=== PATIENT | male | born 1955 | race Caucasian/White ===

== ENCOUNTER → 2017-06-27 | Outpatient (CLI) | payer MEDICARE, BC ==
[2017-06-27 09:43] LABS: HCT 47.2 % (39.0-53.0); HGB 16.1 gm/dL (13.0-17.5); MCH 31.1 pg (25.0-35.0); MCV 91.5 fL (80.0-100.0); Mean Platelet Volume 8.3; Platelet Count 218 k/uL (150-450); RBC 5.16 m/uL (4.30-5.90); RDW 13.1 % (11.5-15.5); WBC 13.8 k/uL (3.8-10.6)
[2017-06-27 10:36] LABS: Anion Gap 11 mmol/L; Blood Urea Nitrogen 18 mg/dL (9-20); Calcium 9.4 mg/dL (8.4-10.2); Carbon Dioxide 29 mmol/L (22-30); Chloride 103 mmol/L (98-107); Glucose 174 mg/dL (74-99); Potassium 4.4 mmol/L (3.5-5.1); Sodium 143 mmol/L (137-145)
[2017-06-27 20:03] LABS: Hemoglobin A1C 8.4 % (4.0-6.0)
== END | disposition home or self-care (01) ==
LOC: LABWHC1 09:13
PROVIDERS: ATTEND Internal Medicine Interventional Cardiology
DX: I25.10 Atherosclerotic heart disease of native coronary artery without angina pectoris (principal); E11.9 Type 2 diabetes mellitus without complications
CPT/HCPCS: 36415; 80048; 83036; 85027

== ENCOUNTER 2017-07-16 06:25 | Day surgery (SDC) | payer MEDICARE, BC ==
[2017-07-10 13:07] VITALS: BMI 28.8
[2017-07-16] MEDS ORDERED: ATORVASTATIN 80 MG TAB PO STA (06:32)
[2017-07-16] MEDS ORDERED: ALPRAZolam 0.25 MG TAB PO PRN (06:32)
[2017-07-16] MEDS ORDERED: ALPRAZolam 0.5 MG TAB PO PRN (06:32)
[2017-07-16] MEDS ORDERED: NITROGLYCERIN SL TABS 0.4 MG TAB SUBLINGUAL PRN (06:32)
[2017-07-16] MEDS ORDERED: ASPIRIN 325 MG TAB PO STA (06:32)
[2017-07-16] MEDS ORDERED: SODIUM CHLORIDE 0.9% 1,000 ML in EMPTY BAG 1 BAG IV ONE (06:32)
[2017-07-16 07:11] LABS: Glucose,Whole Blood 152 mg/dL (75-99)
[2017-07-16 07:15] VITALS: PULSE 83; RESP 20
[2017-07-16] MEDS ORDERED: diphenhydrAMINE 50 MG/ML 1 ML VIAL IVP ONE (07:25)
[2017-07-16] MEDS ORDERED: MIDAZOLAM 2 MG/2 ML VIAL IVP ONE (07:25)
[2017-07-16] MEDS: LIDOCAINE 2% INJ 20 MG/ML SQ ONE ×2 (07:31→07:47)
[2017-07-16] MEDS: VERAPAMIL SYRINGE (5 MG/10 ML) INTRAARTER ONE ×2 (07:34→08:18)
[2017-07-16] MEDS ORDERED: HEPARIN SODIUM 1,000 UN/ML (10ML VL) IV ONE (07:36)
[2017-07-16] MEDS ORDERED: NITROGLYCERIN 1000MCG/10ML SYRINGE INTRAARTER ONE (07:43)
[2017-07-16] MEDS ORDERED: IOPAMIDOL-370 100ML BTL INJ ONE (08:20)
[2017-07-16] MEDS ORDERED: SODIUM CHLORIDE 0.9% 1,000 ML IV SCH (09:15)
[2017-07-16 11:48] LABS: Glucose,Whole Blood 124 mg/dL (75-99)
--- NOTE | 2017-07-16 13:29 | CC ---
CARDIAC CATHETERIZATION REPORT DATE OF SERVICE: 07/16/2017 PROCEDURE: Left heart catheterization and coronary angiography. PERFORMED BY: Dr. Alejandro Daley. Moderate conscious sedation time was 56 minutes. Patient was given a combination of Versed and Benadryl and his oxygen saturation, hemodynamics and EKG were monitored closely. CLINICAL INFORMATION: Mr. Yayo Church is a 62-year-old gentleman with history of smoking, type 2 diabetes, hypertension, hyperlipidemia, and known prior inferior ND. In 2006, he presented with inferior myocardial infarction and underwent stenting of a totally occluded circumflex vessel performed expeditiously. Subsequently in 2010, there was a new area of 90% stenosis with haziness distal to the previous stent and the previous stent was open and this was addressed with a another bare metal 4.0 caliber 8 mm stent. He has been having symptoms of exertional shortness of breath and abnormal stress test suggestive of significant edilson-infarct ischemia. Therefore, he was advised coronary angiography. Risks, benefits, options and rationale were explained. PROCEDURE NOTE: Under local anesthesia and strict aseptic precautions, a 6-St Lucian introducer was placed in the right radial artery. I tried to advance an Ultimate 1 catheter as well as a multipurpose catheter but I could not advance the catheter beyond the brachial artery probably because of a spasm. I therefore switched over to the femoral approach. Under local anesthesia and strict aseptic precautions, a 6-St Lucian introducer was placed in the right femoral artery. Using standard Yasir catheters I performed coronary angiography and the same right Yasir catheter was used to check LV pressure but LV gram was not performed. The sheath was then taken out and manual compression used to secure hemostasis. CARDIAC CATHETERIZATION FINDINGS: The left ventricle end-diastolic pressure was about 14 to 15 mmHg without any gradient across the aortic valve. CORONARY ANGIOGRAPHY FINDINGS: RIGHT CORONARY ARTERY: Technically a nondominant vessel which has a new 80% lesion in the proximal portion. This nondominant vessel supplies predominantly the right ventricle. There is a large conus branch also which has minor irregularities but the proximal RCA disease in a nondominant RCA is significant and the caliber of the vessel is at least 2.5 mm. This is a new lesion, represents progression of disease. LEFT MAIN CORONARY ARTERY: This is a long patent disease-free vessel that bifurcates into LAD and circumflex. LEFT ANTERIOR DESCENDING CORONARY ARTERY: Good caliber vessel that extends along the anterior wall. It gives off a good-sized diagonal branch and then there is a septal branch. The septal branch has a 90% stenosis, supplies a fair amount of myocardium. Right after the septal branch, there is a long area of about 55% narrowing, which is moderate disease. It does not appear critical and then the caliber of the vessel improves. It gives off several septal and diagonal branches and runs all the way to the apex to supply the inferoapical portion of left ventricle. LAD therefore is a large distribution vessel with a mid lesion of 50% to 55% and a septal branch that has a 95% stenosis and it is a good-sized septal branch. LEFT POSTERIOR CIRCUMFLEX CORONARY ARTERY: This is a dominant vessel. The proximal circumflex that was stented is widely patent and the first obtuse marginal that was dilated is also widely patent. The mid circumflex at the site of stenting in 2010 is widely patent and then it gives off 2 small obtuse marginal branches. Both the obtuse marginal branches have minor irregularities but no significant disease and the stented segments in the proximal and mid circumflex are widely patent. Beyond the 2 small obtuse marginal branches, the circumflex vessel bifurcates into 2 branches. The superior branch is a PLV branch which is free of significant disease. The inferior branch is a PDA branch and there is a 95% stenosis in this PDA branch. It is a supplies a fair amount of myocardium and measures about 2.25 caliber in diameter. It appears to be a fair caliber, fair distribution vessel. This also represents progression of disease. LEFT VENTRICULOGRAM: This was not performed. FINAL IMPRESSION: This patient has progression of disease with a proximal right coronary artery nondominant 80% stenosis, PDA branch coming off from circumflex of about 90% stenosis, the LAD has a 50% to 55% long the diseased area in the mid segment with a 90% septal disease. Previously stented proximal and mid circumflex are patent. Filling pressures are acceptable and left ventriculogram was not performed. RECOMMENDATIONS: Findings were reviewed with the patient. I will pursue intervention of the PDA branch, but before this, I will also check the LAD as well with a FFR. I am therefore recommending that we will proceed with an elective intervention, but for now I am recommending risk factor modification and medical therapy. Patient will be discharged today and I will see him in the office next week and then make recommendations after due discussion regarding risk factor modification, smoking cessation with the patient. Elective PCI of the PDA branch possibly of the nondominant RCA also and also assessment of FFR of the LAD lesion is advised. Discussed with the patient and his sister at length and he will be discharged later on today if he remains stable. SANDY / KRISTIE: [id number] /
--- NOTE | 2017-07-16 13:36 | LTR ---
July 16, 2017 Re: Yayo Church Dear Dr. Mercado: Thank you for the opportunity to participate in the care of Mr. Yayo Church. Please find enclosed my detailed cardiac cath report for your records. I will see this patient next week and make specific recommendations and plans for intervention. Risk factor modification issues including smoking cessation was also discussed. Thank you for your referral and please call for questions. With kindest regards. Sincerely yours, MD SANDY Tyson / DONNAN: [phone] /
[2017-07-16 18:34] VITALS: BP 152/74
== END 2017-07-16 17:10 | disposition home or self-care (01) ==
LOC: CATHCVL 06:25
PROVIDERS: ATTEND Internal Medicine Interventional Cardiology
DX: I25.110 Atherosclerotic heart disease of native coronary artery with unstable angina pectoris (principal); R94.39 Abnormal result of other cardiovascular function study; E11.9 Type 2 diabetes mellitus without complications; I10 Essential (primary) hypertension; E78.00 Pure hypercholesterolemia, unspecified; Z95.5 Presence of coronary angioplasty implant and graft; I25.2 Old myocardial infarction; F17.210 Nicotine dependence, cigarettes, uncomplicated; Z79.84 Long term (current) use of oral hypoglycemic drugs; Z79.82 Long term (current) use of aspirin; Z79.899 Other long term (current) drug therapy
CPT/HCPCS: 93458; C1769 ×4; C1894 ×2; J2001; J2250; J1200; J1644; Q9967

== ENCOUNTER → 2017-07-24 | Outpatient (CLI) | payer MEDICARE, BC ==
[2017-07-24 12:15] LABS: HCT 47.7 % (39.0-53.0); HGB 16.1 gm/dL (13.0-17.5); MCH 31.9 pg (25.0-35.0); MCHC 33.8 g/dL (31.0-37.0); MCV 94.3 fL (80.0-100.0); Mean Platelet Volume 8.4; Platelet Count 207 k/uL (150-450); RBC 5.06 m/uL (4.30-5.90); RDW 13.3 % (11.5-15.5); WBC 10.9 k/uL (3.8-10.6)
[2017-07-24 12:28] LABS: Anion Gap 13 mmol/L; Blood Urea Nitrogen 18 mg/dL (9-20); Carbon Dioxide 26 mmol/L (22-30); Chloride 101 mmol/L (98-107); Glucose 190 mg/dL (74-99); Potassium 4.8 mmol/L (3.5-5.1); Sodium 140 mmol/L (137-145)
[2017-07-24 12:29] LABS: Calcium 9.6 mg/dL (8.4-10.2)
== END | disposition home or self-care (01) ==
LOC: LABWHC1 11:32
PROVIDERS: ATTEND Internal Medicine Interventional Cardiology
DX: E11.9 Type 2 diabetes mellitus without complications (principal); I25.10 Atherosclerotic heart disease of native coronary artery without angina pectoris
CPT/HCPCS: 36415; 80048; 85027

== ENCOUNTER 2017-07-31 07:57 | Day surgery (SDC) | payer MEDICARE, BC ==
[~2017-07-31 07:57] MED LIST: ALPRAZolam 0.25 MG TAB PO PRN; ALPRAZolam 0.5 MG TAB PO PRN; ASPIRIN 325 MG TAB PO STA; ATORVASTATIN 80 MG TAB PO STA; NITROGLYCERIN SL TABS 0.4 MG TAB SUBLINGUAL PRN; SODIUM CHLORIDE 0.9% 1,000 ML in EMPTY BAG 1 BAG IV ONE
[2017-07-31 08:30] LABS: Glucose,Whole Blood 156 mg/dL (75-99)
[2017-07-31] MEDS ORDERED: diphenhydrAMINE 50 MG/ML 1 ML VIAL ONE (09:10)
[2017-07-31] MEDS ORDERED: LIDOCAINE 2% INJ 20 MG/ML (20 ML MDV) ONE (09:10)
[2017-07-31] MEDS ORDERED: MIDAZOLAM 2 MG/2 ML VIAL ONE (09:10)
[2017-07-31] MEDS ORDERED: diphenhydrAMINE 50 MG/ML 1 ML VIAL IVP ONE (09:51)
[2017-07-31] MEDS ORDERED: MIDAZOLAM 2 MG/2 ML VIAL IVP ONE ×2 (09:51)
[2017-07-31] MEDS ORDERED: BIVALIRUDIN 250 MG in SODIUM CHLORIDE 0.9% 50 ML IV ONE ×4 (09:53)
[2017-07-31] MEDS ORDERED: BIVALIRUDIN BOLUS 250 MG/50 ML IV ONE ×2 (09:53→10:04)
[2017-07-31] MEDS ORDERED: LIDOCAINE 2% INJ 20 MG/ML SQ ONE (09:56)
[2017-07-31] MEDS ORDERED: IOPAMIDOL-370 100ML BTL INJ ONE ×2 (10:22→10:50)
[2017-07-31] MEDS: NITROGLYCERIN 1000MCG/10ML SYRINGE INTRACORON ONE ×4 (10:23→10:46)
[2017-07-31] MEDS ORDERED: ADENOSINE 90 MG in SODIUM CHLORIDE 0.9% 60 ML IVP ONE (10:34)
[2017-07-31] MEDS ORDERED: TICAGRELOR 90 MG TAB ONE (10:40)
[2017-07-31] MEDS ORDERED: TICAGRELOR 90 MG TAB PO ONE (10:52)
[2017-07-31] MEDS ORDERED: ZOLPIDEM 5 MG TAB PO PRN (10:53)
[2017-07-31] MEDS ORDERED: NITROGLYCERIN SL TABS 0.4 MG TAB SUBLINGUAL PRN (10:53)
[2017-07-31] MEDS ORDERED: ATROPINE SULFATE 0.1 MG/ML 10ML SYRINGE IV PRN (10:53)
[2017-07-31] MEDS ORDERED: RX INFO: IV CONTRAST WAS GIVEN 1 EACH MISC MISCELLANE PRN (10:53)
[2017-07-31] MEDS ORDERED: MAG HYDROX/AL HYDROX/SIMETH 30 ML CUP PO PRN (10:53)
[2017-07-31] MEDS ORDERED: HEPARIN SODIUM 1,000 UN/ML (10ML VL) ONE (10:54)
--- NOTE | 2017-07-31 11:28 | PTCA ---
PERCUTANEOUSTRANS CORORONARY ANGIOGRAPHY DATE OF SERVICE: 07/31/2017. PROCEDURE: 1. PTCA and stenting of PDA branch of circumflex with a drug-eluting stent. 2. FFR of LAD. 3. PTCA and stenting of mid LAD with a drug-eluting stent. PERFORMED BY: Dr. Alejandro Daley. Moderate conscious sedation time was 55 minutes. CLINICAL INFORMATION: Mr. Yayo Church is a 62-year-old gentleman with a known history of CAD, prior myocardial infarction and PCI. I performed PCI of proximal circumflex and obtuse marginal branch and mid circumflex in the past. He had his initial intervention performed in 2006 followed by 2010 and recently performed a cath because of positive stress test and symptoms of exertional shortness of breath, which was considered to be anginal equivalence. Cardiac cath revealed that the PDA had a 95% stenosis, nondominant RCA also had a significant stenosis and mid LAD had a borderline lesion. He was advised intervention of the circumflex and FFR of LAD prior to any intervention. I would also consider the RCA PCI given the fact it is a nondominant vessel but has significant amount of myocardium being supplied by it. Risks, benefits, options were explained to the patient and his sister. PROCEDURE NOTE: Under local anesthesia and strict aseptic precautions, a 6-Greek introducer was placed in the right femoral artery. I used a standard left Yasir guide catheter to cannulate the left coronary artery. Using a Whisper wire I crossed the lesion in the PDA branch of circumflex and kept it distally. Using a 2.25 caliber 12 mm long Trek balloon, I pre-dilated the lesion. I then deployed a 18 mm long 2.25 caliber Xience stent with excellent angiographic result. I then turned my attention to the LAD. Using a volcano wire, I crossed the LAD lesion kept it distally, performed the IFR which came out to be 0.72. I then performed a FFR with the standard protocol and adenosine infusion. This came out to be 0.76. I then decided to stent the mid LAD. I used a 23 mm long Xience stent of 2.75 caliber and deployed this at 13 to 14 atmospheres. Patient did not have chest pain but had EKG changes in the anterior leads. Excellent angiographic result was achieved. The sheath was then sutured and catheter was taken out and he was sent to the room in a stable condition with the understanding there would be a manual pull for the sheath at about 1:15 p.m. The patient was administered Angiomax bolus and infusion. He was given Brilinta 180 mg after the PCI procedure. Excellent angiographic result was achieved and I spoke to the patient and family regarding the findings and I expect he will be discharged tomorrow if he remains stable. SANDY / KRISTIE: [id number] /
--- NOTE | 2017-07-31 11:34 | LTR ---
July 31, 2017 Re: Yayo Church Dear Dr. Mercado: Thank you the opportunity to participate in the care of Mr. Yayo Church. I am pleased to report to you that I stented his PDA branch of circumflex and mid LAD with excellent angiographic result. Two drug-eluting stents were deployed. I have counseled him regarding the need to quit smoking, but so far he has not made much progress. He also has an RCA lesion, which I will address later on if he has symptoms. Thank you for your referral and please call for questions. With kindest regards. Sincerely yours, MD RACHEL TysonL / DONNAN: [phone] /
[2017-07-31] MEDS: LISINOPRIL 5 MG TAB PO SCH (12:51)
[2017-07-31] MEDS: SODIUM CHLORIDE 0.9% 1,000 ML IV SCH (12:52)
[2017-07-31] MEDS: METOPROLOL TARTRATE 50 MG TAB PO SCH ×2 (12:52→21:08)
[2017-07-31 13:02] LABS: Glucose,Whole Blood 140 mg/dL (75-99)
[2017-07-31 16:45] LABS: Glucose,Whole Blood 157 mg/dL (75-99)
[2017-07-31] MEDS ORDERED: ACETAMINOPHEN TAB 325 MG TAB PO PRN (18:44)
[2017-07-31 20:51] LABS: Glucose,Whole Blood 235 mg/dL (75-99)
[2017-07-31] MEDS ORDERED: ATORVASTATIN 80 MG TAB PO SCH (21:00)
[2017-08-01] MEDS: SODIUM CHLORIDE 0.9% 1,000 ML IV SCH (01:28)
[2017-08-01 06:15] LABS: Glucose,Whole Blood 142 mg/dL (75-99)
[2017-08-01 06:27] LABS: Basophils % (A) 0 %; Eosinophils # (A) 0.3 k/uL (0-0.7); Eosinophils % (A) 2 %; HCT 45.4 % (39.0-53.0); HGB 15.5 gm/dL (13.0-17.5); Lymphocytes # (A) 1.9 k/uL (1.0-4.8); Lymphocytes % (A) 14 %; MCH 31.9 pg (25.0-35.0); MCHC 34.1 g/dL (31.0-37.0); MCV 93.5 fL (80.0-100.0); Mean Platelet Volume 7.6; Monocytes # (A) 0.7 k/uL (0-1.0); Monocytes % (A) 5 %; Neutrophils # (A) 10.3 k/uL (1.3-7.7); Neutrophils % (A) 77 %; Platelet Count 173 k/uL (150-450); RBC 4.86 m/uL (4.30-5.90); RDW 13.3 % (11.5-15.5); WBC 13.3 k/uL (3.8-10.6)
[2017-08-01 06:47] LABS: Anion Gap 11 mmol/L; Blood Urea Nitrogen 17 mg/dL (9-20); Calcium 9.1 mg/dL (8.4-10.2); Carbon Dioxide 28 mmol/L (22-30); Chloride 105 mmol/L (98-107); Glucose 138 mg/dL (74-99); Potassium 4.2 mmol/L (3.5-5.1); Sodium 144 mmol/L (137-145)
[2017-08-01] MEDS ORDERED: ASPIRIN 81 MG PO SCH (09:00)
[2017-08-01] MEDS ORDERED: TICAGRELOR 90 MG TAB PO SCH (09:00)
[2017-08-01 09:34] VITALS: BMI 28.1
[2017-08-01] MEDS: METOPROLOL TARTRATE 50 MG TAB PO SCH (09:56)
[2017-08-01] MEDS: LISINOPRIL 5 MG TAB PO SCH (09:57)
[2017-08-01 10:42] VITALS: BP 131/70; PULSE 72; RESP 18; TEMP 98.3
--- NOTE | 2017-08-01 11:02 | DS ---
DISCHARGE SUMMARY DATE OF ADMISSION: 07/31/2017. DATE OF DISCHARGE: 08/01/2017. DIAGNOSES: 1. Unstable angina. 2. Type 2 diabetes. 3. Hypertension. 4. Hyperlipidemia. 5. Previous myocardial infarction. PROCEDURES PERFORMED: PTCA and stenting of LAD after FFR and PTCA and stenting of the PDA branch of circumflex. Mr. Church was brought in for elective PCI. I performed stenting of circumflex PDA branch with excellent result then performed FFR of the LAD which was abnormal went on to stent the LAD. He also has a nondominant RCA lesion, which was not addressed. He is doing well. Postprocedure course is unremarkable. Right groin is clean and dry. S1, S2 heard normally, a short systolic murmur noted. Lungs are clear. Abdomen and lower extremity exam unchanged. Vital signs are stable. Labs and EKG are unremarkable. He will be discharged today. Discharge instructions regarding activity, diet and medications were given. I will see him in the office in the next 3 weeks. MMODL / IJN: [id number] /
== END 2017-08-01 10:38 | disposition home or self-care (01) ==
LOC: CATHCVL 07:57 → 6SEL 11:46 → CATHCVL 08-01 10:38
PROVIDERS: ATTEND Internal Medicine Interventional Cardiology
DX: I25.110 Atherosclerotic heart disease of native coronary artery with unstable angina pectoris (principal); I10 Essential (primary) hypertension; F17.210 Nicotine dependence, cigarettes, uncomplicated; E11.21 Type 2 diabetes mellitus with diabetic nephropathy; Z79.84 Long term (current) use of oral hypoglycemic drugs; Z95.5 Presence of coronary angioplasty implant and graft; E78.5 Hyperlipidemia, unspecified; I25.2 Old myocardial infarction; Z82.49 Family history of ischemic heart disease and other diseases of the circulatory system; E78.00 Pure hypercholesterolemia, unspecified; Z79.82 Long term (current) use of aspirin; Z79.899 Other long term (current) drug therapy
CPT/HCPCS: 93571; 80048; 85025; C9600 ×2; C1769 ×3; C1887; C1725; C1894; C1874; J2001; J2250; J1200; J0583; J0153; Q9967

== ENCOUNTER → 2022-05-07 | Outpatient (CLI) | payer MEDICARE ==
[2022-05-07 22:49] LABS: Basophils # (A) 0.05 X 10*3/uL (0.00-0.10); Basophils % (A) 0.4 %; Eosinophils # (A) 0.24 X 10*3/uL (0.04-0.35); Eosinophils % (A) 2.1 %; HCT 46.4 % (39.6-50.0); HGB 15.3 g/dL (13.0-17.0); Immature Grans, Automated 0.3 %; Lymphocytes # (A) 2.35 X 10*3/uL (0.90-5.00); Lymphocytes % (A) 20.3 %; MCH 32.1 pg (27.0-32.0); MCV 97.3 fL (80.0-97.0); Mean Platelet Volume 10.5 fL (9.5-12.2); Monocytes # (A) 0.67 X 10*3/uL (0.20-1.00); Monocytes % (A) 5.8 %; NRBC Per 100 WBC 0 /100 WBCS (0.0-0.0); Neutrophils # (A) 8.21 X 10*3/uL (1.80-7.70); Neutrophils % (A) 71.1 %; Platelet Count 199 X 10*3/uL (140-440); RBC 4.77 X 10*6/uL (4.40-5.60); RDW 13.6 % (11.5-14.5); WBC 11.55 X 10*3/uL (4.50-10.00)
[2022-05-07 23:04] LABS: INR 0.94 (0.90-1.11); Prothrombin Time 10.7 sec (9.9-11.9)
[2022-05-07 23:47] LABS: African American GFR (CKD) 97.3 (60.0-200.0); Anion Gap 7.5 mmol/L (10.00-18.00); BUN/Creat Ratio 15.17 Ratio (12.00-20.00); Blood Urea Nitrogen 14.2 mg/dL (9.0-27.0); Calcium 9.6 mg/dL (8.7-10.3); Carbon Dioxide 28.5 mmol/L (20.0-27.5); Potassium 4.3 mmol/L (3.5-5.5)
== END | disposition home or self-care (01) ==
LOC: LABWHC1 14:15
PROVIDERS: ATTEND Internal Medicine Interventional Cardiology
DX: I10 Essential (primary) hypertension (principal); I25.10 Atherosclerotic heart disease of native coronary artery without angina pectoris; Z98.61 Coronary angioplasty status
CPT/HCPCS: 36415; 80048; 85025; 85610

== ENCOUNTER 2022-05-08 09:22 | Day surgery (SDC) | payer MEDICARE ==
[~2022-05-08 09:22] MED LIST changes: +ASPIRIN 325 MG TAB PO ONE; -ASPIRIN 325 MG TAB PO STA; +ATORVASTATIN 80 MG TAB PO ONE; -ATORVASTATIN 80 MG TAB PO STA; +HEPARIN SODIUM,PORCINE 10,000 UNIT in SODIUM CHLORIDE 0.9% 1,000 ML IRRIGATION PRN; +HEPARIN SODIUM,PORCINE 2,500 UNIT in SODIUM CHLORIDE 0.9% 250 ML IRRIGATION PRN; -SODIUM CHLORIDE 0.9% 1,000 ML in EMPTY BAG 1 BAG IV ONE
[2022-05-08] MEDS: SODIUM CHLORIDE 0.9% 1,000 ML in EMPTY BAG 1 BAG IV SCH (09:45)
[2022-05-08 09:49] LABS: Glucose,Whole Blood 116 mg/dL (70-110)
[2022-05-08] MEDS ORDERED: fentaNYL (PF) 50 MCG/ML 2 ML AMP ONE (10:59)
[2022-05-08] MEDS ORDERED: MIDAZOLAM 2 MG/2 ML VIAL IV ONE ×2 (11:01)
[2022-05-08] MEDS ORDERED: LIDOCAINE 1% INJ 10MG/ML (5 ML VIAL-PF) SQ ONE (11:05)
[2022-05-08] MEDS ORDERED: fentaNYL (PF) 50 MCG/ML 2 ML AMP IV ONE (11:07)
[2022-05-08] MEDS ORDERED: HEPARIN SODIUM 1,000 UN/ML (10ML VL) IV ONE (11:23)
[2022-05-08] MEDS ORDERED: LIDOCAINE 1% INJ 10MG/ML (30 ML VIAL-PF) SQ ONE (11:23)
[2022-05-08] MEDS: HEPARIN SODIUM 1,000 UN/ML (10ML VL) ONE ×2 (11:40→12:02)
[2022-05-08] MEDS ORDERED: IOPAMIDOL-370 125ML BTL INJ ONE (11:41)
[2022-05-08] MEDS: NITROGLYCERIN 1000MCG/10ML SYRINGE INTRACORON ONE ×2 (11:41→12:05)
[2022-05-08] MEDS ORDERED: IOPAMIDOL-370 100ML BTL INJ ONE ×2 (11:41→12:18)
[2022-05-08] MEDS ORDERED: HYDROmorphone 0.5 MG/0.5 ML SYRINGE IVP ONE (12:18)
[2022-05-08] MEDS ORDERED: CLOPIDOGREL 75 MG TAB ONE (12:25)
[2022-05-08] MEDS ORDERED: MAG HYDROX/AL HYDROX/SIMETH 30 ML CUP PO PRN (12:25)
[2022-05-08] MEDS ORDERED: RX INFO: IV CONTRAST WAS GIVEN 1 EACH MISC MISCELLANE PRN (12:25)
[2022-05-08] MEDS ORDERED: ATROPINE SULFATE 0.1 MG/ML 10ML SYRINGE IV PRN (12:25)
[2022-05-08] MEDS ORDERED: ZOLPIDEM 5 MG TAB PO PRN (12:25)
[2022-05-08 16:56] LABS: Glucose,Whole Blood 85 mg/dL (70-110)
--- NOTE | 2022-05-08 18:29 | CC ---
CARDIAC CATHETERIZATION REPORT DATE OF SERVICE: 05/08/2022. PROCEDURES PERFORMED: 1. Left heart catheterization and coronary angiography. 2. Percutaneous transluminal coronary angioplasty and stenting of proximal right coronary artery with a drug-eluting stent. 3. Instantaneous wave-free ratio measurement of proximal and mid circumflex lesion. PERFORMED BY: Dr. Alejandro Daley. Moderate conscious sedation time was 66 minutes. The patient was administered Versed and fentanyl. Oxygen saturation, hemodynamics, and EKG were monitored closely. CLINICAL INFORMATION: Mr. Yayo Church is a 67-year-old gentleman with a known history of CAD, hypertension, multivessel PCI, type 2 diabetes, chronic nicotine dependence, and COPD. He has been having increasing chest pressure and shortness of breath with activity and had a recent positive stress test with ejection fraction in the 35% range. He was advised cardiac catheterization after due discussion regarding risks, benefits, and options. He was also placed on Imdur 30 mg daily. In 2017, he underwent stenting of PDA branch of circumflex as well as mid LAD. Prior to that, in 2006 and 2010, I had performed stenting of proximal and mid circumflex coronary artery. The 2006 PTCA was performed in the setting of an acute inferior ST-elevation [place] with a total occlusion of circumflex. He has 2 stents in the proximal and mid circumflex from before. PROCEDURE NOTE: Under local anesthesia and strict aseptic precautions, a 6-Tanzanian introducer was placed in the right radial artery. Because of extreme tortuosity in the right brachial artery, I could not advance the catheter comfortably. Therefore, I abandoned and switched over to the right femoral approach. A TR band was applied after the completion of procedure, and the saturation in the fingers of the right hand was 95%. Under strict aseptic precautions and local anesthesia, a 6-Tanzanian introducer was placed in the right femoral artery. Using JL3.5 and JR4 catheters, I performed coronary angiography, and the same right catheter was used to check LV pressure, but LV-gram was not performed. Following the cardiac catheterization, I proceeded to perform PTCA of proximal RCA and also did an iFR of proximal circumflex. CARDIAC CATHETERIZATION FINDINGS: The left ventricular end-diastolic pressure was 11 mmHg without any gradient across aortic valve. CORONARY ANGIOGRAPHY FINDINGS: RIGHT CORONARY ARTERY: Technically nondominant but large-caliber vessel of about 2.5 mm caliber. It has a very proximal 90% lesion with haziness and some calcium. This appears to be a culprit lesion. A moderate amount of myocardium and also upper lateral wall are supplied by this along with the upper anterolateral wall. LEFT MAIN CORONARY ARTERY: Short, patent vessel. No significant disease. Bifurcates into LAD and circumflex. LEFT ANTERIOR DESCENDING CORONARY ARTERY: Good-caliber vessel, extends along the anterior wall, gives off a diagonal branch and septal branches. Following that diagonal branch, there is an area of stenting, which is widely patent with good flow, and the entire LAD has minor irregularities. No significant disease. LEFT POSTERIOR CIRCUMFLEX CORONARY ARTERY: Proximal circumflex has about 40% lesion and gives off an obtuse marginal. Then, there is another area of about 30% lesion in the mid circumflex, and distally, it gives off PDA and PLV branches. The PDA that was stented is widely patent. Proximal circumflex has a 40% to 45% stenosis. This is in the previously-placed stent. The left ventricular end-diastolic pressure was about 11 mmHg without any gradient across aortic valve. FINAL IMPRESSION: This patient has a 90% stenosis involving a nondominant right coronary artery that supplies the upper lateral wall and probably some right ventricle as well. The left main is free of significant disease. The left anterior descending that was stented is widely patent. Proximal circumflex that was stented has a 40% to 45% lesion. Mid circumflex has a 35% lesion, and posterior descending artery stented is widely patent. Normal filling pressures. No gradient. RECOMMENDATIONS: I recommended PCI of the RCA and also iFR of the circumflex. I proceeded to perform this in the same setting. PCI PROCEDURE DETAILS: From the right femoral approach, I used a JR4 guide catheter and a run-through wire. The wire was kept distally in the RCA. Predilatation was performed with a 2.5-caliber 12-mm NC Trek balloon, and then I deployed a 2.5-caliber 12-mm long Xience stent at 12 atmospheres. Excellent angiographic result was achieved without complication. Following this, I turned my attention to the circumflex. I used a JL4 guide catheter for left circumflex and an Omni straight wire. I calibrated the wire as per protocol, and following this, I measured iFR. Two measurements were performed. Both of these were 0.98 and 1.01. This was not significant. The wires were taken out. Catheter was taken out, and Angio-Seal device was used to secure hemostasis, and the patient was sent to the room in a stable condition. There was no family available, but results were discussed with the patient. Excellent angiographic result of RCA was achieved. IFR of first circumflex was negative for any significant lesion. I expect the patient to be discharged tomorrow if he remains stable. MMODL / IJN: [id number] /
[2022-05-08 20:33] LABS: Glucose,Whole Blood 112 mg/dL (70-110)
[2022-05-08] MEDS: METOPROLOL TARTRATE 50 MG TAB PO SCH (20:43)
[2022-05-08] MEDS ORDERED: ATORVASTATIN 80 MG TAB PO SCH (21:00)
[2022-05-08 21:34] VITALS: RESP 18
[2022-05-09] MEDS: SODIUM CHLORIDE 0.9% 1,000 ML in EMPTY BAG 1 BAG IV SCH (03:28)
[2022-05-09 06:23] LABS: Glucose,Whole Blood 122 mg/dL (70-110)
[2022-05-09] MEDS ORDERED: PANTOPRAZOLE 40 MG TABLET PO SCH (07:30)
[2022-05-09] MEDS: METOPROLOL TARTRATE 50 MG TAB PO SCH (08:13)
[2022-05-09] MEDS ORDERED: lisinopriL 10 MG TAB PO SCH (09:00)
[2022-05-09] MEDS ORDERED: ASPIRIN 81 MG PO SCH (09:00)
[2022-05-09] MEDS ORDERED: ISOSORBIDE MONONITRATE ER 30 MG TAB.ER.24H PO SCH (09:00)
[2022-05-09] MEDS ORDERED: CLOPIDOGREL 75 MG TAB PO SCH (09:00)
[2022-05-09 10:37] VITALS: BMI 27.6
--- NOTE | 2022-05-09 11:12 | DS ---
DISCHARGE SUMMARY HOSPITAL COURSE: This gentleman was brought in for elective cardiac cath yesterday, which revealed a 90% RCA stenosis that was stented. His postprocedure course was complicated by some oozing from the right radial site. Eventually, there was good hemostasis. He is doing well. Right groin and right radial site are clean and dry with a good pulse. EKG is good. He is doing well without any chest pain, shortness of breath, or palpitations. I performed PCI of RCA and checked the IFR of circumflex, which was normal. Discussed with the patient to be compliant with medications including Imdur. I will increase activity today and discharge him this afternoon. I will check a CBC and BMP prior to discharge. Advised not to smoke and resume activities of daily living and the right radial site and right groin should be watched carefully. He will see me in the office next Saturday. Vitals are stable. S1, S2 heard normally, short systolic murmur. Clear lungs. Abdomen and lower extremity exam unchanged. Right groin and radial site are clean and dry with good pulse. MMODL / IJN: [id number] /
[2022-05-09 11:34] VITALS: BP 151/78; PULSE 57; TEMP 97.5
[2022-05-09 11:36] LABS: Glucose,Whole Blood 142 mg/dL (70-110)
[2022-05-09 11:57] LABS: African American GFR (CKD) >90 (>60 ml/min/1.73 sqM); Anion Gap 6 mmol/L; Blood Urea Nitrogen 12 mg/dL (9-20); Calcium 8.7 mg/dL (8.4-10.2); Carbon Dioxide 26 mmol/L (22-30); Chloride 107 mmol/L (98-107); Glucose 121 mg/dL (74-99); Non-African American GFR(CKD) >90 (>60 ml/min/1.73 sqM); Sodium 139 mmol/L (137-145)
[2022-05-09 11:58] LABS: HCT 41.3 % (39.0-53.0); HGB 14.2 gm/dL (13.0-17.5); MCH 32.7 pg (25.0-35.0); MCHC 34.4 g/dL (31.0-37.0); MCV 95.1 fL (80.0-100.0); Mean Platelet Volume 8.9; Platelet Count 146 k/uL (150-450); RBC 4.34 m/uL (4.30-5.90); RDW 14.1 % (11.5-15.5); WBC 12.4 k/uL (3.8-10.6)
== END 2022-05-09 15:46 | disposition home or self-care (01) ==
LOC: CATHCVL 09:22 → 3SCARD 12:11 → CATHCVL 05-09 15:46
PROVIDERS: ATTEND Internal Medicine Interventional Cardiology
DX: I25.10 Atherosclerotic heart disease of native coronary artery without angina pectoris (principal); I25.82 Chronic total occlusion of coronary artery; J44.9 Chronic obstructive pulmonary disease, unspecified; E11.9 Type 2 diabetes mellitus without complications; I10 Essential (primary) hypertension; Z87.891 Personal history of nicotine dependence; Z79.899 Other long term (current) drug therapy; Z95.5 Presence of coronary angioplasty implant and graft
CPT/HCPCS: 93458; 93799; 80048; 85027; 93571; C1769 ×6; C9600; C1760 ×2; C1887 ×2; C1894 ×2; C1874; C1725; J2250; J2001 ×2; J3010; J1644; J1170; Q9967

== ENCOUNTER 2024-02-12 07:00 | Inpatient (IN) | payer MEDICARE ==
[~2024-02-12 07:00] MED LIST changes: -ASPIRIN 325 MG TAB PO ONE; -ATORVASTATIN 80 MG TAB PO ONE; -HEPARIN SODIUM,PORCINE 10,000 UNIT in SODIUM CHLORIDE 0.9% 1,000 ML IRRIGATION PRN; -HEPARIN SODIUM,PORCINE 2,500 UNIT in SODIUM CHLORIDE 0.9% 250 ML IRRIGATION PRN
[2024-02-12] MEDS: IV FLUID CONTINUATION 1,000 ML IV ONE (07:35)
[2024-02-12] MEDS: SODIUM CHLORIDE 0.9% 1,000 ML in EMPTY BAG 1 BAG IV ONE (07:36)
[2024-02-12] MEDS: CLOPIDOGREL 75 MG TAB PO PRN (07:36)
[2024-02-12 07:44] LABS: Glucose,Whole Blood 83 mg/dL (70-110)
[2024-02-12] MEDS: ASPIRIN 81 MG PO STA (07:46)
[2024-02-12] MEDS: LIDOCAINE 1% INJ 10MG/ML (20 ML MDV) SQ ONE (08:21)
[2024-02-12] MEDS: HEPARIN SODIUM 1,000 UN/ML (10ML VL) IVP ONE (08:31)
[2024-02-12] MEDS ORDERED: RX INFO: IV CONTRAST WAS GIVEN 1 EACH MISC MISCELLANE PRN (09:00)
[2024-02-12] MEDS: IOPAMIDOL-370 100ML BTL INJ ONE ×2 (09:06→09:41)
[2024-02-12] MEDS: PHENYLEPHRINE-0.9% NACL SYG 1,000 MCG/10 ML SYRINGE IVP ONE (09:40)
--- NOTE | 2024-02-12 10:52 | IR ---
EXAMINATION TYPE: IR stent intravas non coronary DATE OF EXAM: 02/12/2024 10:06 AM COMPARISON: Pre Operative Images if available both CT/MRI or plain film CLINICAL INDICATION: Male, 68 years old with history of TIA,16.1m/243.8934DAP, Rt gr angio-seal. TECHNIQUE: IR stent intravas non coronary, multiple fluoroscopic images provided for procedure. Total fluoroscopy time: 16.1 minutes Total submitted images to PACS: [id number] DAP: 243.893 mGym2 Gycm2 uGym2 cGycm2 or equivalent. FINDINGS: Fluoroscopic images during internal fixation/arthroplasty demonstrate hardware in appropriate positio n. Hardware appears intact. No immediate complication identified. IMPRESSION: 1. No evidence for intraoperative complication. 2. Please see the operative/procedural note for further details. [facility], , 02/12/2024 10:50 AM
[2024-02-12] MEDS ORDERED: ATROPINE SULFATE 0.1 MG/ML 10ML SYRINGE IV PRN (10:54)
[2024-02-12] MEDS ORDERED: MAG HYDROX/AL HYDROX/SIMETH 30 ML CUP PO PRN (10:54)
[2024-02-12 11:10] LABS: Glucose,Whole Blood 78 mg/dL (70-110)
[2024-02-12 16:17] LABS: Glucose,Whole Blood 102 mg/dL (70-110)
[2024-02-12] MEDS: SODIUM CHLORIDE 0.9% 1,000 ML IV SCH (20:11)
[2024-02-12] MEDS: ATORVASTATIN 40 MG TAB PO SCH (20:11)
[2024-02-12 20:14] VITALS: TEMP 97.9
[2024-02-12 20:37] LABS: Glucose,Whole Blood 84 mg/dL (70-110)
[2024-02-13 06:25] LABS: Glucose,Whole Blood 57 mg/dL (70-110)
[2024-02-13 06:49] LABS: Glucose,Whole Blood 77 mg/dL (70-110)
[2024-02-13 08:00] LABS: Basophils % (A) 0 %; Eosinophils # (A) 0.1 k/uL (0-0.7); Eosinophils % (A) 1 %; HCT 30.8 % (39.0-53.0); HGB 10.3 gm/dL (13.0-17.5); Lymphocytes % (A) 12 %; MCHC 33.5 g/dL (31.0-37.0); MCV 98.4 fL (80.0-100.0); Macrocytosis Slight; Mean Platelet Volume 8.8; Monocytes # (A) 0.5 k/uL (0-1.0); Monocytes % (A) 5 %; Neutrophils % (A) 81 %; Platelet Count 131 k/uL (150-450); RBC 3.13 m/uL (4.30-5.90); RDW 15.9 % (11.5-15.5); WBC 8.7 k/uL (3.8-10.6)
[2024-02-13 08:20] LABS: African American GFR (CKD) 51 (>60 ml/min/1.73 sqM); Anion Gap 3 mmol/L; Blood Urea Nitrogen 19 mg/dL (9-20); Calcium 8.9 mg/dL (8.4-10.2); Carbon Dioxide 27 mmol/L (22-30); Chloride 110 mmol/L (98-107); Glucose 71 mg/dL (74-99); Non-African American GFR(CKD) 44 (>60 ml/min/1.73 sqM); Potassium 4.3 mmol/L (3.5-5.1); Sodium 140 mmol/L (137-145)
[2024-02-13] MEDS: CLOPIDOGREL 75 MG TAB PO SCH (08:46)
[2024-02-13] MEDS: ASPIRIN 81 MG PO SCH (08:46)
[2024-02-13 08:50] VITALS: RESP 16
[2024-02-13 12:04] LABS: Glucose,Whole Blood 57 mg/dL (70-110)
[2024-02-13 12:04] LABS: Glucose,Whole Blood 61 mg/dL (70-110)
[2024-02-13 12:19] VITALS: BP 130/60; PULSE 63
[2024-02-13 12:20] LABS: Glucose,Whole Blood 46 mg/dL (70-110)
[2024-02-13 12:24] LABS: Glucose,Whole Blood 61 mg/dL (70-110)
[2024-02-13 12:48] LABS: Glucose,Whole Blood 85 mg/dL (70-110)
--- NOTE | 2024-02-13 16:11 | P.PCN ---
Description of Procedure: DESCRIPTION OF PROCEDURE(S): PROCEDURES PERFORMED: Ascending aortic root angiography, right selective carotid angiography, XACT 9 x 7 x 40mm carotid stent of right carotid artery INDICATION: Right internal carotid artery stenosis CONSENT:I have discussed the risks, benefits and alternative therapies for the above-mentioned procedure and for both sedation/analgesia as well as necessary blood product administration, if indicated, as they pertain to this patient. The patient has indicated understanding and acceptance of the risks and procedures discussed. PROCEDURE: After the risks, benefits and alternatives of the above mentioned procedure explained in detail with the patient, informed consent was obtained. Patient was taken to the catheterization lab and prepped and draped in usual fashion. 1% lidocaine was used to anesthetize the right femoral area. A 6- Australian sheath was placed in the right femoral artery using modified Seldinger technique. A 5-Australian pigtail catheter was inserted to the ascending aorta and DSA imaging was obtained. Next using VTK catheter the proximal right subclavian artery was engaged and selective angiography was performed. There was no gradient with pullback across the subclavian stenosis. Angiography showed 85% PATI stenosis and therefore intervention was recommended. A 0.035 glide advantage wire was placed in the right external carotid artery. Next a 6Fr destination sheath was advanced into the right common carotid artery. A Spider filter embolic protection device was placed in the petrous portion of the PATI. Predilation was performed with a 4mm balloon. Next a 9 x 7 x 40mm XACT carotid stent was placed in the right common into PATI. This was post dilated with a 5.0mm balloon. A right femoral angiogram was performed and anatomoy was suitable for closure. A 6Fr Angioseal was placed with hemostasis achieved. The patient tolerated the procedure well. Patient was transported back to the post catheterization holding area in stable condition. Conscious Sedation: Patient was monitored under the direct supervision of vision of myself for conscious sedation using Versed and fentanyl for a total duration of 56 minutes ASCENDING AORTA: There is no significant aneurysm or stenosis. Innominate artery: proximal 60-70% stenosis \Right common carotid: 0% stenosis Right internal carotid artery: 85% stenosis FINAL IMPRESSION: 1. 85% right internal carotid artery stenosis, s/p XACT 9 x 7 x 40mm carotid stent of right carotid artery PLAN: 1. Aggressive risk factor modification per most recent ACC/AHA guidelines. 2. Continue aspirin and Plavix for 3 months 3. Tobacco cessation recommended and gave patient information on [place] Quit line.
--- NOTE | 2024-02-13 16:12 | P.DS ---
Providers Date of admission: 02/12/24 07:00 Attending physician: Anders Barrios DO Primary care physician: [facility] Course: Patient is a pleasant 68 yo male who presented for carotid angiography and underwent angiography and then stenting of the right internal carotid artery on 02/11 from a right femoral approach. He denied any issues or complaints and tolerated the procedure. He was stable for DC home with outpt followup in 1-2 weeks. Plan - Discharge Summary Discharge Rx Participant: No New Discharge Prescriptions: No Action lisinopriL [Zestril] 10 mg PO QAM metFORMIN HCL 1,000 mg PO DAILY Metoprolol Tartrate [Lopressor] 50 mg PO BID Aspirin [Adult Low Dose Aspirin EC] 81 mg PO DAILY Atorvastatin [Lipitor] 80 mg PO HS #30 tab Tamsulosin [Flomax] 0.4 mg PO DAILY Glimepiride [Amaryl] 4 mg PO AC-BRKFST Clopidogrel [Plavix] 1 tab PO DAILY Isosorbide Mononitrate ER [Imdur] 30 mg PO DAILY Discharge Medication List lisinopriL [Zestril] 10 mg PO QAM 12/15/13 [History] metFORMIN HCL 1,000 mg PO DAILY 12/15/13 [History] Aspirin [Adult Low Dose Aspirin EC] 81 mg PO DAILY 07/10/17 [History] Metoprolol Tartrate [Lopressor] 50 mg PO BID 07/10/17 [History] Atorvastatin [Lipitor] 80 mg PO HS #30 tab 08/01/17 [Rx] Clopidogrel [Plavix] 1 tab PO DAILY 05/07/22 [History] Glimepiride [Amaryl] 4 mg PO AC-BRKFST 02/11/24 [History] Isosorbide Mononitrate ER [Imdur] 30 mg PO DAILY 02/11/24 [History] Tamsulosin [Flomax] 0.4 mg PO DAILY 02/11/24 [History] Follow up Appointment(s)/Referral(s): Cheyenne Contreras MD [STAFF PHYSICIAN] - 02/25/24 10:45 am (FOLLOW UP APPOINTMENT MADE W/ DR. CONTRERAS ) Patient Instructions/Handouts: Carotid Artery Stent Placement (DC)
== END 2024-02-13 16:23 | disposition home or self-care (01) | DRG 39 ==
LOC: 2ORMAIN 07:00 → 3SCARD 09:41
PROVIDERS: ADMIT Internal Medicine; ATTEND Internal Medicine
PROC: B3161ZZ Fluoroscopy of Right Internal Carotid Artery using Low Osmolar Contrast (ICD-10-PCS; 2024-02-12)
PROC: B41F1ZZ Fluoroscopy of Right Lower Extremity Arteries using Low Osmolar Contrast (ICD-10-PCS; 2024-02-12)
PROC: 037K3ZZ Dilation of Right Internal Carotid Artery, Percutaneous Approach (ICD-10-PCS; principal; 2024-02-12 08:30)
PROC: B3101ZZ Fluoroscopy of Thoracic Aorta using Low Osmolar Contrast (ICD-10-PCS; 2024-02-12 08:30)
DX: I65.21 Occlusion and stenosis of right carotid artery (principal); Z71.6 Tobacco abuse counseling; I25.10 Atherosclerotic heart disease of native coronary artery without angina pectoris; R29.810 Facial weakness; R47.9 Unspecified speech disturbances; E78.5 Hyperlipidemia, unspecified; Z86.73 Personal history of transient ischemic attack (TIA), and cerebral infarction without residual deficits; E11.9 Type 2 diabetes mellitus without complications; F17.210 Nicotine dependence, cigarettes, uncomplicated; I25.2 Old myocardial infarction
CPT/HCPCS: 37215; 76937; 80048; 85025

== ENCOUNTER 2024-09-14 09:44 | Emergency (ER) | payer MEDICARE ==
[2024-09-14 09:50] VITALS: TEMP 98
[2024-09-14 10:42] LABS: Basophils # (A) 0.04 10*3/uL (0.00-0.10); Basophils % (A) 0.4 %; Eosinophils # (A) 0.12 10*3/uL (0.04-0.35); Eosinophils % (A) 1.1 %; HCT 37.5 % (39.6-50.0); HGB 13.0 g/dL (13.0-17.0); Lymphocytes # (A) 0.94 10*3/uL (0.90-5.00); Lymphocytes % (A) 8.4 %; MCH 33.1 pg (27.0-32.0); MCHC 34.7 g/dL (32.0-37.0); MCV 95.4 fL (80.0-97.0); Monocytes # (A) 0.62 10*3/uL (0.20-1.00); Monocytes % (A) 5.5 %; Neutrophils # (A) 9.48 10*3/uL (1.80-7.70); Neutrophils % (A) 84.2 %; Platelet Count 165 10*3/uL (140-440); RBC 3.93 10*6/uL (4.40-5.60); RDW 13.6 % (11.5-14.5); WBC 11.24 10*3/uL (4.50-10.00)
[2024-09-14 10:52] LABS: Bilirubin,Urine Negative (Negative); Blood,Urine Negative (Negative); Color,Urine Colorless; Glucose,Urine (UA) Negative (Negative); Ketones,Urine Negative (Negative); Leukocyte Esterase,Urine Negative (Negative); Nitrite,Urine Negative (Negative); PH, Urine 6.0 (5.0-8.0); Protein,Urine Negative (Negative); Specific Gravity,Urine 1.011 (1.001-1.035); Urobilinogen,Urine <2.0 mg/dL (<2.0)
[2024-09-14] MEDS: SODIUM CHLORIDE 0.9% 1,000 ML IV STA (10:55)
[2024-09-14 11:05] LABS: ALT 30 U/L (4-49); AST 30 U/L (17-59); African American GFR (CKD) 66 (>60 ml/min/1.73 sqM); Albumin 3.6 g/dL (3.5-5.0); Alkaline Phosphatase 90 U/L (38-126); Anion Gap 11 mmol/L; Blood Urea Nitrogen 22 mg/dL (9-20); Calcium 9.6 mg/dL (8.4-10.2); Carbon Dioxide 23 mmol/L (22-30); Chloride 104 mmol/L (98-107); Glucose 127 mg/dL (74-99); Magnesium 1.8 mg/dL (1.6-2.3); Non-African American GFR(CKD) 57 (>60 ml/min/1.73 sqM); Potassium 4.4 mmol/L (3.5-5.1); Sodium 138 mmol/L (137-145); Total Protein 6.3 g/dL (6.3-8.2)
--- NOTE | 2024-09-14 11:08 | ED ---
General Adult HPI - General Chief complaint: Arrhythmia/Palpitations Stated complaint: Abn heart rate Time Seen by Provider: 09/14/24 10:00 Source: patient, RN/MD, RN notes reviewed, old records reviewed Mode of arrival: wheelchair Limitations: no limitations - History of Present Illness Initial comments: 69-year-old male who presents emergency department after being sent from preop over concern for atypical EKG. Anesthesia and Dr. Alas wanted the patient to have cardiac clearance prior to colonoscopy. Has completed colonoscopy prep for the last few days and is currently NPO. I discussed with Dr. Alas and he would like the patient admitted to observation with cardiology consult for cardiac clearance. Can possibly complete the colonoscopy later today. Patient has no acute complaints. Does have a significant history of prior CVA, CAD with 2 cardiac stents, diabetes, hypertension, hyperlipidemia. EKG showed PVCs earlier. Vitals are within acceptable limits. He has no complaints other than feeling hungry. Presents for further evaluation at this time. Follows with Dr. Barrios of cardiology. - Related Data Home Medications Medication Instructions Recorded Confirmed Aspirin [Adult Low Dose Aspirin EC] 81 mg PO DAILY 07/10/17 09/14/24 Metoprolol Tartrate [Lopressor] 50 mg PO TID 07/10/17 09/14/24 Clopidogrel [Plavix] 75 mg PO DAILY 05/07/22 09/14/24 Isosorbide Mononitrate ER [Imdur] 30 mg PO DAILY 02/11/24 09/14/24 Tamsulosin [Flomax] 0.4 mg PO DAILY 09/14/24 09/14/24 lisinopriL [Zestril] 10 mg PO DAILY 09/14/24 09/14/24 metFORMIN HCL 1,000 mg PO BID 09/14/24 09/14/24 Previous Rx's Medication Instructions Recorded Atorvastatin [Lipitor] 80 mg PO HS #30 tab 08/01/17 Allergies Allergy/AdvReac Type Severity Reaction Status Date / Time No Known Allergies Allergy Verified 09/14/24 11:07 Review of Systems ROS Statement: Those systems with pertinent positive or pertinent negative responses have been documented in the HPI. Review of Systems: CONST: Denies fever EYES: Denies blurry vision ENT: Denies nasal congestion C/V: Denies Chest pain RESP: Denies shortness of breath GI: Denies abdominal pain : Denies dysuria SKIN: Denies rash. MSK: Denies joint pain. NEURO: Denies headache ROS Other: All systems not noted in ROS Statement are negative. Past Medical History Past Medical History: Coronary Artery Disease (CAD), CVA/TIA, Diabetes Mellitus, GERD/Reflux, Hyperlipidemia, Hypertension, Myocardial Infarction (OH), Osteoarthritis (OA) Additional Past Medical History / Comment(s): kidney stones x2; OH in 2006 and 2010; had stroke February 2024 (unsure of exact dates) had treatment at [facility]. Last Myocardial Infarction Date:: 2010 History of Any Multi-Drug Resistant Organisms: None Reported Past Surgical History: Heart Catheterization With Stent, Orthopedic Surgery Additional Past Surgical History / Comment(s): broken R leg with plates and screws; past colonscopy Past Anesthesia/Blood Transfusion Reactions: Motion Sickness Additional Past Anesthesia/Blood Transfusion Reaction / Comment(s): No hx of blood tranfusion Date of Last Stent Placement:: 2010 Past Psychological History: No Psychological Hx Reported Smoking Status: Current every day smoker - Past Family History Mother Family Medical History: No Reported History Additional Family Medical History / Comment(s): Mother's brother had col on/rectal CA General Exam - General Exam Comments Initial Comments: General: Appears in no acute distress. HEAD: Normal with no signs of head trauma. EYES: PERRLA, EOMI, conjunctiva normal, no discharge. ENT: Hearing grossly intact, normal oropharynx. RESPIRATORY: Clear breath sounds bilaterally. No wheezes, rales, or rhonchi. C/V: Regular rate and rhythm. S1 and S2 auscultated, no edema, peripheral pulses 2+ and intact throughout ABD: Abd is soft, nontender, nondistended EXT: No obvious deformity. SKIN: No rashes or lesions observed on exposed skin. NEURO: Alert and oriented x 4. Limitations: no limitations Course Vital Signs 09/14/24 09/14/24 09:46 10:54 Temperature 98 F Pulse Rate 70 60 Respiratory 18 18 Rate Blood Pressure 149/86 156/73 O2 Sat by Pulse 95 96 Oximetry Medical Decision Making - Medical Decision Making Was pt. sent in by a medical professional or institution (, PA, LIFE INSURANCE SALES AGENT, urgent care, hospital, or long term...) When possible be specific @ -Sent from preop over concern for abnormal EKG. Did you speak to anyone other than the patient for history (EMS, parent, family, police, friend...)? What history was obtained from this source @ -Spoke with Dr. Alas who conveyed his ideal plan of admitting for cardiac observation and possibly completing colonoscopy later today if patient is cleared. Did you review nursing and triage notes (agree or disagree)? Why? @ -I reviewed and agree with nursing and triage notes Were old charts reviewed (outside hosp., previous admission, EMS record, old EKG, old radiological studies, urgent care reports/EKG's, long term records)? Report findings @ -Compared today's EKG to prior EKGs which shows no significant acute change. Comparison EKG is from April 2022. Differential Diagnosis (chest pain, altered mental status, abdominal pain women, abdominal pain men, vaginal bleeding, weakness, fever, dyspnea, syncope, headache, dizziness, GI bleed, back pain, seizure, CVA, palpatations, mental health, musculoskeletal)? @ -Abnormal EKG, electrolyte abnormalities, normal EKG. This list is not all- inclusive. EKG interpreted by me (3pts min.). @ -As above X-rays interpreted by me (1pt min.). @ -Chest x-ray shows no obvious acute cardiopulmonary process. CT interpreted by me (1pt min.). @ -None done U/S interpreted by me (1pt. min.). @ -None done What testing was considered but not performed or refused? (CT, X-rays, U/S, labs)? Why? @ -None What meds were considered but not given or refused? Why? @ -None Did you discuss the management of the patient with other professionals (professionals i.e. , PA, LIFE INSURANCE SALES AGENT, lab, RT, psych nurse, long term care social worker, landfill grader, te acher, public records officer, manager case)? Give summary @ -Discussed the management with Dr. Alas who with anesthesia would like the patient had cardiac clearance prior to colonoscopy. Plan is to admit the patient observation under medicine with cardiology consultation for clearance. Dr. Alas may be able to complete colonoscopy later today. Was smoking cessation discussed for >3mins.? @ -No Was critical care preformed (if so, how long)? @ -No Were there social determinants of health that impacted care today? How? (Homelessness, low income, unemployed, alcoholism, drug addiction, transportati on, low edu. Level, literacy, decrease access to med. care, penitentiary, rehab)? @ -No Was there de-escalation of care discussed even if they declined (Discuss DNR or withdrawal of care, Hospice)? DNR status @ -No What co-morbidities impacted this encounter? (DM, HTN, Smoking, COPD, CAD, Cancer, CVA, ARF, Chemo, Hep., AIDS, mental health diagnosis, sleep apnea, morbid obesity)? @ -CAD Was patient admitted / discharged? Hospital course, mention meds given and route, prescriptions, significant lab abnormalities, going to OR and other pertinent info. @ -Presents emergency department after being sent from preop over concern for atypical EKG. PVC seen on this EKG. Transferred here for evaluation for cardiac clearance prior to obtaining colonoscopy and being put under anesthesia. Patient has no acute complaints. He states he is hungry. Has been NPO. Patient be continued on IV fluids, will continue on n.p.o. at this time. We will obtain cardiac labs. EKG shows that the PVC is from preop. Repeat EKG shows no PVCs. Chest x-ray unremarkable. Laboratory studies unremarkable. I spoke with the patient's surgeon, Dr. Alas and he did he and the anesthesiologist would like the patient to obtain formal cardiac clearance. Plan is to admit the patient observation under Dr. Mercado with [place] consult and cardiology on as consult. If patient is cleared today, they can possibly complete the colonoscopy later today. I spoke with Dr. Mercado who was in agreement the plan. Cardiology consulted. Dr. Alas consulted. Undiagnosed new problem with uncertain prognosis? @ -No Drug Therapy requiring intensive monitoring for toxicity (Heparin, Nitro, Insulin, Cardizem)? @ -No Were any procedures done? @ -No Diagnosis/symptom? @ -Atypical EKG, PVCs Acute, or Chronic, or Acute on Chronic? @ -Acute Uncomplicated (without systemic symptoms) or Complicated (systemic symptoms)? @ -Uncomplicated Side effects of treatment? @ -No Exacerbation, Progression, or Severe Exacerbation? @ -No Poses a threat to life or bodily function? How? (Chest pain, [place], [place], pneumonia, PE, COPD, DKA, ARF, appy, cholecystitis, CVA, Diverticulitis, Homicidal, Suicidal, threat to staff... and all critical care pts) @ -Potentially, yes - Lab Data Result diagrams: 09/14/24 10:32 09/14/24 10:32 Lab Results 09/14/24 09/14/24 09/14/24 Range/Units 10:32 10:32 10:32 WBC 11.24 H (4.50-10.00) 10*3/uL RBC 3.93 L (4.40-5.60) 10*6/uL Hgb 13.0 (13.0-17.0) g/dL Hct 37.5 L (39.6-50.0) % MCV 95.4 (80.0-97.0) fL MCH 33.1 H (27.0-32.0) pg MCHC 34.7 (32.0-37.0) g/dL Plt Count 165 (140-440) 10*3/uL MPV 10.1 (9.5-12.2) fL Immature Gran % (Auto) 0.4 % Neutrophils % 84.2 % Lymphocytes % 8.4 % Monocytes % 5.5 % Eosinophils % 1.1 % Basophils % 0.4 % Immature Gran # 0.04 (0.00-0.04) 10*3/uL Neutrophils # 9.48 H (1.80-7.70) 10*3/uL Lymphocytes # 0.94 (0.90-5.00) 10*3/uL Monocytes # 0.62 (0.20-1.00) 10*3/uL Eosinophils # 0.12 (0.04-0.35) 10*3/uL Basophils # 0.04 (0.00-0.10) 10*3/uL Sodium 138 (137-145) mmol/L Potassium 4.4 (3.5-5.1) mmol/L Chloride 104 (98-107) mmol/L Carbon Dioxide 23 (22-30) mmol/L Anion Gap 11 mmol/L BUN 22 H (9-20) mg/dL Creatinine 1.27 H (0.66-1.25) mg/dL Est GFR (CKD-EPI)AfAm 66 (>60 ml/min/1.73 sqM) Est GFR (CKD-EPI)NonAf 57 (>60 ml/min/1.73 sqM) Glucose 127 H (74-99) mg/dL Calcium 9.6 (8.4-10.2) mg/dL Magnesium 1.8 (1.6-2.3) mg/dL Total Bilirubin 1.2 (0.2-1.3) mg/dL AST 30 (17-59) U/L ALT 30 (4-49) U/L Alkaline Phosphatase 90 (38-126) U/L Troponin I <0.012 (0.000-0.034) ng/mL Total Protein 6.3 (6.3-8.2) g/dL Albumin 3.6 (3.5-5.0) g/dL Urine Color Urine Appearance (Clear) Urine pH (5.0-8.0) Ur Specific [place] (1.001-1.035) Urine Protein (Negative) Urine Glucose (UA) (Negative) Urine Ketones (Negative) Urine Blood (Negative) Urine Nitrite (Negative) Urine Bilirubin (Negative) Urine Urobilinogen (<2.0) mg/dL Ur Leukocyte Esterase (Negative) 09/14/24 Range/Units 10:43 WBC (4.50-10.00) 10*3/uL RBC (4.40-5.60) 10*6/uL Hgb (13.0-17.0) g/dL Hct (39.6-50.0) % MCV (80.0-97.0) fL MCH (27.0-32.0) pg MCHC (32.0-37.0) g/dL Plt Count (140-440) 10*3/uL MPV (9.5-12.2) fL Immature Gran % (Auto) % Neutrophils % % Lymphocytes % % Monocytes % % Eosinophils % % Basophils % % Immature Gran # (0.00-0.04) 10*3/uL Neutrophils # (1.80-7.70) 10*3/uL Lymphocytes # (0.90-5.00) 10*3/uL Monocytes # (0.20-1.00) 10*3/uL Eosinophils # (0.04-0.35) 10*3/uL Basophils # (0.00-0.10) 10*3/uL Sodium (137-145) mmol/L Potassium (3.5-5.1) mmol/L Chloride (98-107) mmol/L Carbon Dioxide (22-30) mmol/L Anion Gap mmol/L BUN (9-20) mg/dL Creatinine (0.66-1.25) mg/dL Est GFR (CKD-EPI)AfAm (>60 ml/min/1.73 sqM) Est GFR (CKD-EPI)NonAf (>60 ml/min/1.73 sqM) Glucose (74-99) mg/dL Calcium (8.4-10.2) mg/dL Magnesium (1.6-2.3) mg/dL Total Bilirubin (0.2-1.3) mg/dL AST (17-59) U/L ALT (4-49) U/L Alkaline Phosphatase (38-126) U/L Troponin I (0.000-0.034) ng/mL Total Protein (6.3-8.2) g/dL Albumin (3.5-5.0) g/dL Urine Color Colorless Urine Appearance Clear (Clear) Urine pH 6.0 (5.0-8.0) Ur Specific [place] 1.011 (1.001-1.035) Urine Protein Negative (Negative) Urine Glucose (UA) Negative (Negative) Urine Ketones Negative (Negative) Urine Blood Negative (Negative) Urine Nitrite Negative (Negative) Urine Bilirubin Negative (Negative) Urine Urobilinogen <2.0 (<2.0) mg/dL Ur Leukocyte Esterase Negative (Negative) - EKG Data -: EKG Interpreted by Me EKG Comments: 12-lead Electrocardiogram Interpretation Note This EKG was obtained in preop. EKG was reviewed and interpreted by myself. 12- lead ECG performed at 0919 is interpreted by me as revealing normal sinus rhythm at a rate of 73 beats per minute. Left axis deviation. [place] interval is 177 ms, QRS durations 142 ms, QTc is 407 ms. PVCs are present.. There were no ST or T wave abnormalities to suggest myocardial ischemia or injury. R wave progression across the precordium was delayed. By my interpretation this EKG is non-diagnostic for acute ischemia. 12-lead Electrocardiogram Interpretation Note EKG was reviewed and interpreted by myself. 12-lead ECG performed at 0950 is interpreted by me as revealing normal sinus rhythm at a rate of 66 beats per minute. [place] appears normal. [place] interval is 181 ms, QRS durations 153 ms, QTc is 396 ms.. There were no ST or T wave abnormalities to suggest myocardial ischemia or injury. R wave progression across the precordium was satisfactory. By my interpretation this EKG is non-diagnostic for acute ischemia. Disposition Clinical Impression: Abnormal EKG, PVC (premature ventricular contraction) Disposition: ADMITTED IP TO THIS HOSP Condition: Stable Referrals: Williams Mercado DO [Primary Care Provider] - 1-2 days Time of Disposition: 11:24
[2024-09-14] MEDS ORDERED: ONDANSETRON 4 MG/2 ML VIAL IVP PRN (11:24)
[2024-09-14] MEDS ORDERED: NALOXONE 0.4 MG/ML 1 ML VIAL IV PRN (11:24)
--- NOTE | 2024-09-14 11:39 | XR ---
EXAMINATION TYPE: XR chest 2V DATE OF EXAM: 09/14/2024 11:21 AM COMPARISON: 08/01/2010 CLINICAL INDICATION: Male, 69 years old with history of cardiac clearance, TECHNIQUE: XR chest 2V view(s) obtained. FINDINGS: The heart size is normal. The pulmonary vasculature is normal. There is an infiltrate at the right base. Correlate for atelectasis or pneumonia.. IMPRESSION: 1. Right lower lobe infiltrate. Correlate for atelectasis or pneumonia. [facility], Workstation: [facility], 09/14/2024 11:36 AM
[2024-09-14 13:18] VITALS: BP 179/80; PULSE 84; RESP 16
[2024-09-15] MEDS ORDERED: PANTOPRAZOLE 40 MG/10 ML VIAL IV SCH (09:00)
== END 2024-09-14 13:18 | disposition left against medical advice (07) ==
LOC: EC 09:44 → UNDOADMOB 11:46 → 6NMEDSUR 11:46 → UNDODISOB 13:17
DX: I49.3 Ventricular premature depolarization (principal); E11.9 Type 2 diabetes mellitus without complications; I10 Essential (primary) hypertension; I25.10 Atherosclerotic heart disease of native coronary artery without angina pectoris; E78.5 Hyperlipidemia, unspecified; Z79.82 Long term (current) use of aspirin; Z79.02 Long term (current) use of antithrombotics/antiplatelets; Z79.84 Long term (current) use of oral hypoglycemic drugs; Z79.899 Other long term (current) drug therapy; F17.200 Nicotine dependence, unspecified, uncomplicated; Z95.5 Presence of coronary angioplasty implant and graft
CPT/HCPCS: 36415; 71046; 80053; 81003; 83735; 84484; 85025; 93005; 99285

== ENCOUNTER → 2024-09-14 | Day surgery (SDC) | payer MEDICARE ==
[2024-07-07 09:13] VITALS: BMI 26.4
[2024-09-14] MEDS: IV FLUID CONTINUATION 1,000 ML IV ONE ×2 (08:36→08:59)
[2024-09-14 08:54] LABS: Glucose,Whole Blood 152 mg/dL (70-110)
[2024-09-14] MEDS: LACTATED RINGERS 1,000 ML IV SCH (08:55)
[2024-09-14 08:57] VITALS: RESP 16; TEMP 97
[2024-09-14 09:20] VITALS: BP 171/68; PULSE 67
== END ==
LOC: ORWHC2ENDO 08:21
PROVIDERS: ATTEND Surgery
DX: Z12.11 Encounter for screening for malignant neoplasm of colon (principal); Z53.8 Procedure and treatment not carried out for other reasons